=== PATIENT | male | born 2005 | race Two or more races ===

== ENCOUNTER 2024-11-30 00:37 | Emergency (ER) | payer MEDICAID ==
[~2024-11-30] VITALS: Ht 162.6 cm; Wt 59.1 kg
[2024-11-30 00:46] VITALS: TEMP 98
[2024-11-30] MEDS: LIDOCAINE 1% 10 ML VIAL ID ONE (04:24)
[2024-11-30 04:56] VITALS: BP 129/74; PULSE 77; RESP 18; O2SAT 96
== END 2024-11-30 07:17 | disposition home or self-care (01) ==
LOC: EMS 00:37
DX: S61.412A Laceration without foreign body of left hand, initial encounter (principal); F12.90 Cannabis use, unspecified, uncomplicated; X58.XXXA Exposure to other specified factors, initial encounter; Y93.89 Activity, other specified; Y92.89 Other specified places as the place of occurrence of the external cause; Y99.8 Other external cause status
CPT/HCPCS: 99283; 73130; 12002; J3490

== ENCOUNTER 2024-12-07 12:36 | Emergency (ER) | payer MEDICAID ==
[~2024-12-07] VITALS: Ht 167.6 cm; Wt 65.9 kg
[2024-12-07 12:49] VITALS: TEMP 98.1
[2024-12-07 15:03] VITALS: BP 121/69; PULSE 65; RESP 14; O2SAT 100
== END 2024-12-07 15:04 | disposition home or self-care (01) ==
LOC: EMS 12:36
DX: S61.412D Laceration without foreign body of left hand, subsequent encounter (principal); F12.90 Cannabis use, unspecified, uncomplicated; X58.XXXD Exposure to other specified factors, subsequent encounter
CPT/HCPCS: 99281; Z7502

== ENCOUNTER 2024-12-14 09:39 | Emergency (ER) | payer MEDICAID ==
[~2024-12-14] VITALS: Ht 165.1 cm; Wt 59.1 kg
[2024-12-14 10:14] VITALS: BP 103/67; PULSE 66; RESP 16; TEMP 98.105288; O2SAT 98
== END 2024-12-14 10:43 | disposition home or self-care (01) ==
LOC: EMS 09:39
DX: S61.412D Laceration without foreign body of left hand, subsequent encounter (principal); F12.90 Cannabis use, unspecified, uncomplicated; X58.XXXA Exposure to other specified factors, initial encounter
CPT/HCPCS: 99282; Z7502